=== PATIENT | male | born 1955 | race Caucasian/White ===

== ENCOUNTER 2023-02-22 22:45 | Emergency (ER) | payer OTHER ==
[2023-02-22 22:52] VITALS: RESP 18; BMI 41.5
[2023-02-22 23:15] VITALS: BP 146/62; PULSE 61; TEMP 98.6
== END 2023-02-23 01:26 | disposition home or self-care (01) ==
LOC: FER 22:45
DX: S46.912A Strain of unspecified muscle, fascia and tendon at shoulder and upper arm level, left arm, initial encounter (principal); S20.212A Contusion of left front wall of thorax, initial encounter; W10.1XXA Fall (on)(from) sidewalk curb, initial encounter
CPT/HCPCS: 71101-TC-LT-FY; 73030-TC-LT-FY; 99283-25

== ENCOUNTER 2023-04-28 20:11 | Emergency (ER) | payer OTHER ==
[2023-04-28 20:35] VITALS: BP 142/78; PULSE 75; RESP 18; TEMP 98.2; BMI 41.4
== END 2023-04-28 21:19 | disposition home or self-care (01) ==
LOC: FER 20:11
DX: M54.16 Radiculopathy, lumbar region (principal); G89.29 Other chronic pain; M79.604 Pain in right leg; M79.605 Pain in left leg
CPT/HCPCS: 99283-25